=== PATIENT | male | born 1960 | race Caucasian/White ===

== ENCOUNTER 2024-02-12 16:20 | Emergency (ER) | payer OTHER, SELFPAY ==
[2024-02-12 16:27] VITALS: BP 142/87; PULSE 95; RESP 18; TEMP 36.6; O2SAT 97; BMI 42.4
--- NOTE | 2024-02-12 16:39 | DI.RAD.S_ITS ---
PROCEDURE: XR CHEST 1V INDICATIONS: chest pain TECHNIQUE: One view of the chest was acquired. COMPARISON: [facility], , CHEST 2VW, 06/02/2014, 14:02. FINDINGS: Surgical changes and devices: None. Lungs and pleura: Left basilar scars and atelectasis. Lungs are clear. No pleural effusions or pneumothorax. Mediastinum: Mediastinal contours appear normal. Heart size is normal. Bones and chest wall: No suspicious bony lesions. Overlying soft tissues appear unremarkable. IMPRESSION: No acute cardiopulmonary abnormality is seen. Dictated by: Kaley Birch M.D. on 02/12/2024 at 17:26 Approved by: Kaley Birch M.D. on 02/12/2024 at 17:27
[2024-02-12 16:58] LABS: Add Manual Diff / Slide Review NO; Basophils Absolute Auto 0 /uL (0-100); Basophils Percent Auto 0.4 % (0-2); Eosinophils Absolute Auto 100 /uL (0-450); Eosinophils Percent Auto 0.9 % (2-4); Hematocrit 43.6 % (41-53); Hemoglobin 15.4 g/dL (13.5-17.5); Lymphocytes Absolute Auto 1900 /uL (1100-4500); Lymphocytes Percent Auto 18.8 % (25-40); Mean Corpuscular HGB Conc 35.4 % (30-36); Mean Corpuscular Hemoglobin 31.6 PG (26-34); Mean Corpuscular Volume 89.3 fL (80-100); Monocytes Absolute Auto 600 /uL (0-900); Monocytes Percent Auto 5.7 % (3-14); Neutrophils Absolute Auto 7500 /uL (1500-7000); Neutrophils Percent Auto 74.2 % (50-75); Platelet Count 223 X10^3/uL (150-400); Red Blood Cell Count 4.88 X10^6/uL (4.5-5.9); Red Cell Distribution Width 13.7 % (11.6-14.8); White Blood Cell Count 10.1 X10^3/uL (4.5-11.0)
[2024-02-12 17:06] LABS: Prothrombin Time 11.6 SECONDS (9.4-12.5)
[2024-02-12 17:08] LABS: PTT Partial Thromboplastin Tim 31 SECONDS (25.1-36.5)
[2024-02-12 17:10] LABS: Alanine Aminotransferase 65 IU/L (<50); Albumin 4.6 g/dL (3.5-5.0); Albumin Globulin Ratio 1.4 (1.0-2.8); Alkaline Phosphatase 97 U/L (38-126); Aspartate Aminotransferase 55 IU/L (17-59); BUN Creatinine Ratio 16.9 (6-22); Bilirubin Total 1.5 mg/dL (0.2-1.3); Blood Urea Nitrogen 10 mg/dL (9-20); Calcium 9.6 mg/dL (8.4-10.2); Carbon Dioxide 27 mmol/L (22-32); Chloride 99 mmol/L (98-107); Creatine Kinase 38 U/L (55-170); Estimated Glomerular Filt Rate > 60 mL/min (>60); Globulin 3.3 g/dL (1.7-4.1); Glucose 296 mg/dL (80-110); HEMOLYSIS < 15 (0-50); Lipase 119 U/L (23-300); Magnesium 1.9 mg/dL (1.6-2.3); Potassium 4.1 mmol/L (3.4-5.1); Sodium 134 mmol/L (137-145); Total Protein 7.9 g/dL (6.3-8.2)
[2024-02-12 17:21] LABS: Troponin I < 0.012 ng/mL (0.01-0.034)
[2024-02-12 18:20] VITALS: PULSE 87; O2SAT 97
[2024-02-12 18:22] VITALS: BP 160/98; PULSE 80; RESP 14; O2SAT 98
--- NOTE | 2024-02-12 18:27 | ED.GENADULT ---
HPI - General Adult General Chief complaint: Diabetic Problem Stated complaint: high blood sugar Time Seen by Provider: 02/12/24 18:26 Source: patient Mode of arrival: Ambulatory History of Present Illness HPI narrative: 63-year-old male presents for elevated blood glucose readings at home. Patient states that he was previously diagnosed with prediabetes and has been in a diabetic support group, however [place] had not attended and [place]. He states that last week he saw his primary care doctor in his A1c was 10. He was started on 500 mg daily of metformin. Patient states that his sugars have been between 3-500 at home. He told friends and family members, who told him that he could fall into a coma because of his blood sugars and to come to the ED. Patient reports hx of rheumatoid disease and was previously on prednisone. Finished prednisone 1 week prior. Related Data Home Medications Medication Instructions Recorded Confirmed atorvastatin 20 mg tablet 20 mg PO DAILY 02/12/24 02/12/24 celecoxib 200 mg capsule 200 mg PO BID 02/12/24 02/12/24 folic acid 1 mg tablet 1 mg PO BID 02/12/24 02/12/24 metformin 500 mg tablet 500 mg PO ONCE 02/12/24 02/12/24 methotrexate 2.5 mg/mL oral 2.5 mg PO QWEEK 02/12/24 02/12/24 solution Previous Rx's Medication Instructions Recorded metformin 500 mg tablet 500 mg PO BID #60 tabs 02/12/24 Allergies Allergy/AdvReac Type Severity Reaction Status Date / Time No Known Drug Allergies Allergy Verified 02/12/24 15:52 Review of Systems Review of Systems Narrative: Negative except as noted above Patient History Medical History (Updated 02/12/24 @ 18:29 by Keily Verma MD) Polyarthritis Social History Smoking Status: Current every day smoker Smoking Status: Current every day smoker tobacco type: smokeless tobacco alcohol intake frequency: a few times a month Substance Use Type: marijuana Exam Initial Vital Signs Initial Vital Signs: Vital Signs Temperature 97.8 F 02/12/24 16:27 Pulse Rate 95 H 02/12/24 16:27 Respiratory Rate 18 02/12/24 16:27 Blood Pressure 142/87 H 02/12/24 16:27 Pulse Oximetry 97 02/12/24 16:27 Oxygen Delivery Method Room Air 02/12/24 16:27 Const: Awake, alert, no acute distress, nontoxic appearing Cardiac: regular rate, regular rhythm RESP: unlabored, clear bilaterally, no wheezing Skin: Warm, Dry, intact, no rashes Neuro: AO x3, CN II-XII grossly intact, moves all extremities Course Orders Ordered: ED Orders 02/12/24 16:39 XR chest 1V Stat EKG-12 Lead Stat 02/12/24 16:46 Complete Blood Count AUTO DIFF Stat Comprehensive Metabolic Panel Stat Lipase Stat Magnesium Stat PTT Partial Thromboplastin [place] Stat Prothrombin Time INR Stat Troponin & CK Cardiac Panel Stat Discontinued Medications Aspirin (Aspirin 81 Mg Chew Tab) 324 mg PO NOW ONE Stop: 02/12/24 16:40 Last Admin: 02/12/24 18:37 Dose: Not Given Documented By: JADA Sodium Chloride (Normal Saline 0.9%) 1,000 mls @ 1,000 mls/hr IV BOLUS ONE Stop: 02/12/24 19:26 Last Infusion: 02/12/24 19:29 Dose: Infused Documented By: Admin: 02/12/24 18:37 Dose: 1,000 mls/hr Documented By: MAR Vital Signs Vital signs: Vital Signs - 8 hr 02/12/24 18:20 02/12/24 18:22 02/12/24 18:22 Pulse Rate 87 80 Respiratory Rate 14 Blood Pressure 160/98 H Pulse Oximetry 97 98 02/12/24 18:30 02/12/24 18:30 02/12/24 19:00 Pulse Rate 85 Respiratory Rate 14 Blood Pressure 152/92 H 166/97 H Pulse Oximetry 94 02/12/24 19:00 Pulse Rate 75 Respiratory Rate 12 Blood Pressure Pulse Oximetry 98 Medical Decision Making Lab Data 02/12/24 16:46 02/12/24 16:46 Labs: Lab Results 02/12/24 Range/Units 16:46 WBC 10.1 (4.5-11.0) X10^3/uL RBC 4.88 (4.5-5.9) X10^6/uL Hgb 15.4 (13.5-17.5) g/dL Hct 43.6 (41-53) % MCV 89.3 (80-100) fL MCH 31.6 (26-34) PG MCHC 35.4 (30-36) % RDW 13.7 (11.6-14.8) % Plt Count 223 (150-400) X10^3/uL Neut % (Auto) 74.2 (50-75) % Lymph % (Auto) 18.8 L (25-40) % [place] % (Auto) 5.7 (3-14) % Eos % (Auto) 0.9 L (2-4) % Baso % (Auto) 0.4 (0-2) % Neut # (Auto) 7500 H (5367-0750) /uL Lymph # (Auto) 1900 (9242-6768) /uL [place] # (Auto) 600 (0-900) /uL Eos # (Auto) 100 (0-450) /uL Baso # (Auto) 0 (0-100) /uL PT 11.6 (9.4-12.5) SECONDS INR 1.0 (0.9-1.3) APTT 31 (25.1-36.5) SECONDS Sodium 134 L (137-145) mmol/L Potassium 4.1 (3.4-5.1) mmol/L Chloride 99 (98-107) mmol/L Carbon Dioxide 27 (22-32) mmol/L BUN 10 (9-20) mg/dL Creatinine 0.59 L (0.66-1.25) mg/dL Estimated GFR > 60 (>60) mL/min BUN/Creatinine Ratio 16.9 (6-22) Glucose 296 H (80-110) mg/dL Calcium 9.6 (8.4-10.2) mg/dL Magnesium 1.9 (1.6-2.3) mg/dL Total Bilirubin 1.5 H (0.2-1.3) mg/dL AST 55 (17-59) IU/L ALT 65 H (<50) IU/L Alkaline Phosphatase 97 (38-126) U/L Total Creatine Kinase 38 L (55-170) U/L Troponin I < 0.012 (0.01-0.034) ng/mL Total Protein 7.9 (6.3-8.2) g/dL Albumin 4.6 (3.5-5.0) g/dL Globulin 3.3 (1.7-4.1) g/dL Albumin/Globulin Ratio 1.4 (1.0-2.8) Lipase 119 (23-300) U/L Point of Care Testing Glucose POC 274 Point of care testing: Point of Care Testing Glucose POC 274 MDM Narrative Medical decision making narrative: Nontoxic patient with elevated blood glucoses at home. Patient states he feels tired, thirsty with somewhat blurred vision. Hgb A1c greater than 10 at his PCP office, which translates to average glucose >240 over the last 3 months. IV fluids ordered. Labs show normal kidney function, no evidence of DKA, no evidence of infection. Patient is on the lowest dose possible of metformin. Patient was counseled to start a food journal where he logs everything that he eats, and given instructions on how to gradually increase his metformin. He was strongly advised to follow up with primary care physician. Patient casually mentioned intermittent chest pains in triage, his EKG is normal sinus rhythm, troponin undetectable, chest x-ray unremarkable. Low suspicion for ACS at this time. Discharge Plan Departure Patient Disposition: Home Clinical Impression: Diabetes mellitus Qualifiers: Diabetes mellitus type: type 2 Diabetes mellitus senior living insulin use: without senior living use Diabetes mellitus complication status: without complication Qualified Code(s): E11.9 - Type 2 diabetes mellitus without complications Instructions: DI for Diabetes Type 2 Activity Restrictions/Additional Instructions: Increase your metformin to 500 mg twice daily. If you find that you do not have too many GI side effects such as upset stomach or diarrhea you may increase this to 1500 mg daily. The maximum dose of metformin is 2000 mg daily. Please make sure that you follow up closely with your primary care physician to monitor your sugars, kidney function, etc. Prescriptions: New metformin 500 mg tablet 500 mg PO BID Qty: 60 0RF No Action metformin 500 mg tablet 500 mg PO ONCE celecoxib 200 mg capsule 200 mg PO BID atorvastatin 20 mg tablet 20 mg PO DAILY methotrexate 2.5 mg/mL solution 2.5 mg PO QWEEK Patient Comments: 8 pills once a week folic acid 1 mg tablet 1 mg PO BID Referrals: Miscellaneous,Doctor, MD [Primary Care Provider] - Stand Alone Forms: Patient Portal/API
[2024-02-12 18:30] VITALS: BP 152/92; PULSE 85; RESP 14; O2SAT 94
[2024-02-12] MEDS: SODIUM CHLORIDE 0.9% 1,000 ML 1000 ML IV (18:37)
[2024-02-12 19:00] VITALS: BP 166/97; PULSE 75; RESP 12; O2SAT 98
== END 2024-02-12 19:31 | disposition home or self-care (01) ==
PROVIDERS: Emergency Medicine; Emergency Provider Emergency Medicine; Family Provider Family Medicine
DX: E11.9 Type 2 diabetes mellitus without complications (principal); R07.9 Chest pain, unspecified
CPT/HCPCS: 36415; 71045; 80053; 82550; 82962; 83690; 83735; 84484; 85025; 85610; 85730; 93005; 99284

== ENCOUNTER 2024-05-13 15:02 | Emergency (ER) | payer OTHER, SELFPAY ==
[2024-05-13 15:39] VITALS: BP 157/107; PULSE 113; RESP 16; TEMP 36.4; O2SAT 98; BMI 43.4
[2024-05-13 17:14] LABS: Add Manual Diff / Slide Review NO; Basophils Absolute Auto 100 /uL (0-100); Basophils Percent Auto 0.7 % (0-2); Eosinophils Absolute Auto 100 /uL (0-450); Eosinophils Percent Auto 1.2 % (2-4); Hematocrit 46.2 % (41-53); Lymphocytes Absolute Auto 1900 /uL (1100-4500); Lymphocytes Percent Auto 16.7 % (25-40); Mean Corpuscular HGB Conc 34.6 % (30-36); Mean Corpuscular Hemoglobin 33.1 PG (26-34); Mean Corpuscular Volume 95.9 fL (80-100); Monocytes Absolute Auto 1000 /uL (0-900); Monocytes Percent Auto 8.6 % (3-14); Neutrophils Absolute Auto 8200 /uL (1500-7000); Neutrophils Percent Auto 72.8 % (50-75); Platelet Count 201 X10^3/uL (150-400); Red Blood Cell Count 4.81 X10^6/uL (4.5-5.9); Red Cell Distribution Width 14.5 % (11.6-14.8); White Blood Cell Count 11.3 X10^3/uL (4.5-11.0)
[2024-05-13 17:22] LABS: Alanine Aminotransferase 48 IU/L (<50); Albumin 4.8 g/dL (3.5-5.0); Albumin Globulin Ratio 1.3 (1.0-2.8); Alkaline Phosphatase 73 U/L (38-126); Aspartate Aminotransferase 77 IU/L (17-59); BUN Creatinine Ratio 27.4 (6-22); Blood Urea Nitrogen 20 mg/dL (9-20); Calcium 8.7 mg/dL (8.4-10.2); Carbon Dioxide 24 mmol/L (22-32); Chloride 102 mmol/L (98-107); Estimated Glomerular Filt Rate > 60 mL/min (>60); Globulin 3.8 g/dL (1.7-4.1); Glucose 117 mg/dL (80-110); Lipase 112 U/L (23-300); Sodium 136 mmol/L (137-145); Total Protein 8.6 g/dL (6.3-8.2)
--- NOTE | 2024-05-13 17:35 | ED_ITS ---
HPI - Back Pain/Injury General Chief Complaint: Back Pain/Injury Stated Complaint: lower back pain on left side Time Seen by Provider: 05/13/24 17:33 Source: patient, RN notes reviewed and old records reviewed Mode of arrival: Ambulatory Limitations: no limitations History of Present Illness HPI Narrative: 63-year-old male with history of hypertension dyslipidemia, psoriatic arthritis who presents with complaint of left flank pain wrapping around towards the front. Patient states it started in the last several days. Had minor symptoms on and off in the past but it has become constant and persistent. Describes it as a 6/10 at all times waxing and intensity and then improving. Patient states no fevers but he is felt sweaty. He states he has had some nausea but no vomiting. States he has had some diarrhea but notes he recently stopped metformin and started Mounjaro. Which he also relates his nausea 2. Patient states he has not noticed any changes in urination such as dysuria, urgency or frequency. Has not appreciate any hematuria but notes his urine has been dark. He states he does not get very good look at it because he lives in a van and uses a composting toilet so it does not in any water. Patient does note he had kidney stone many years ago, he does not recall if it felt similar to today. He has dose of his Celebrex for pain. States he has had prior ankle surgery. No reported drug allergies. Daily tobacco use, occasional alcohol, occasional marijuana denies any other recreational or IV drugs. Home medications include atorvastatin, Celebrex, folic acid, Lasix, had BREAUX to 14 days, Levemir, patient recently stopped metformin. Methotrexate. Recently started Mounjaro and sildenafil PRN. Related Data Home Medications Medication Instructions Recorded Confirmed atorvastatin 20 mg tablet 20 mg PO DAILY 02/12/24 02/12/24 celecoxib 200 mg capsule 200 mg PO BID 02/12/24 02/12/24 folic acid 1 mg tablet 1 mg PO BID 02/12/24 02/12/24 metformin 500 mg tablet 500 mg PO ONCE 02/12/24 02/12/24 methotrexate 2.5 mg/mL oral 2.5 mg PO QWEEK 02/12/24 02/12/24 solution Previous Rx's Medication Instructions Recorded metformin 500 mg tablet 500 mg PO BID #60 tabs 02/12/24 hydrocodone 5 mg-acetaminophen 325 1 tab PO Q6H PRN pain #5 tabs 05/13/24 mg tablet tamsulosin 0.4 mg capsule (Flomax) 0.4 mg PO DAILY #7 caps 05/13/24 Allergies Allergy/AdvReac Type Severity Reaction Status Date / Time No Known Drug Allergies Allergy Verified 02/12/24 15:52 Review of Systems Review of Systems ROS Unobtainable: All systems reviewed & are unremarkable except as noted in HPI and below Patient History Medical History Polyarthritis Social History Smoking Status: Current every day smoker Smoking Status: Current every day smoker tobacco type: smokeless tobacco alcohol intake frequency: a few times a month Substance Use Type: marijuana Exam Narrative Exam Narrative: GENERAL: Alert and oriented x three, male in mild distress. HEENT: Head normocephalic, atraumatic, EOMI, pupils reactive, face symmetric, moist mucous membranes NECK: Supple, full range of motion CARDIOVASCULAR: Regular rate and rhythm without murmurs, rubs or gallops. RESPIRATORY: Breath sounds equal bilaterally, no wheezes rales or rhonchi. ABDOMEN: Soft, nontender. Normoactive bowel sounds all 4 quadrants. No guarding or rebound, rigidity, no mass : No CVA tenderness bilaterally. EXTREMITIES: Normal range of motion, no clubbing or edema. Neurovascularly intact NEUROLOGICAL: Cranial nerves II through XII grossly intact. Moving all extremities SKIN: Warm, dry, no petechiae, patient has several small pustules over follicles on various locations on his back but these are quite sporadic throughout the back and not localized in the left lower quadrant or anterior abdomen. Initial Vital Signs Initial Vital Signs: Vital Signs Temperature 97.6 F 05/13/24 15:39 Pulse Rate 113 H 05/13/24 15:39 Respiratory Rate 16 05/13/24 15:39 Blood Pressure 157/107 H 05/13/24 15:39 Pulse Oximetry 98 05/13/24 15:39 Oxygen Delivery Method Room Air 05/13/24 15:39 Course Orders Ordered: Discontinued Medications Ondansetron HCl (Ondansetron 4 Mg/2 Ml Inj) 4 mg IV NOW PRN PRN Reason: Nausea And Vomiting Ondansetron HCl (Ondansetron 4 Mg Odt) 4 mg PO NOW PRN PRN Reason: Nausea And Vomiting Vital Signs Vital signs: Vital Signs - 8 hr 05/13/24 15:39 05/13/24 18:10 Temperature 97.6 F 98.7 F Pulse Rate 113 H 98 H Respiratory Rate 16 19 Blood Pressure 157/107 H 147/101 H Pulse Oximetry 98 98 Oxygen Delivery Method Room Air Room Air MDM - Back Pain/Injury Lab Data 05/13/24 17:01 05/13/24 17:01 Labs: Lab Results 05/13/24 05/13/24 Range/Units 17:01 17:05 WBC 11.3 H (4.5-11.0) X10^3/uL RBC 4.81 (4.5-5.9) X10^6/uL Hgb 16.0 (13.5-17.5) g/dL Hct 46.2 (41-53) % MCV 95.9 (80-100) fL MCH 33.1 (26-34) PG MCHC 34.6 (30-36) % RDW 14.5 (11.6-14.8) % Plt Count 201 (150-400) X10^3/uL Neut % (Auto) 72.8 (50-75) % Lymph % (Auto) 16.7 L (25-40) % [place] % (Auto) 8.6 (3-14) % Eos % (Auto) 1.2 L (2-4) % Baso % (Auto) 0.7 (0-2) % Neut # (Auto) 8200 H (7864-3574) /uL Lymph # (Auto) 1900 (2640-9554) /uL [place] # (Auto) 1000 H (0-900) /uL Eos # (Auto) 100 (0-450) /uL Baso # (Auto) 100 (0-100) /uL Sodium 136 L (137-145) mmol/L Potassium 4.4 (3.4-5.1) mmol/L Chloride 102 (98-107) mmol/L Carbon Dioxide 24 (22-32) mmol/L BUN 20 (9-20) mg/dL Creatinine 0.73 (0.66-1.25) mg/dL Estimated GFR > 60 (>60) mL/min BUN/Creatinine Ratio 27.4 H (6-22) Glucose 117 H (80-110) mg/dL Calcium 8.7 (8.4-10.2) mg/dL Total Bilirubin 2.0 H (0.2-1.3) mg/dL AST 77 H (17-59) IU/L ALT 48 (<50) IU/L Alkaline Phosphatase 73 (38-126) U/L Total Protein 8.6 H (6.3-8.2) g/dL Albumin 4.8 (3.5-5.0) g/dL Globulin 3.8 (1.7-4.1) g/dL Albumin/Globulin Ratio 1.3 (1.0-2.8) Lipase 112 (23-300) U/L Ur Bilirubin Confirm Positive H (Negative) Urine RBC None seen (0-5/HPF) Urine WBC None seen (0-5/HPF) Ur Squamous Epith Cells None seen (0-5/HPF) Urine Bacteria Occasional (0-1) (None) Urine Mucus 1+ H (Negative) Ur Culture Indicated? Specimen cultured Vol Urine Centrifuged 10ml (spun) Urine Dip Bedside Urine Glucose Negative Bedside Urine Bilirubin + 1 Bedside Urine Ketone +/- 5 Urine Specific [place] 1.025 Bedside Urine Occult Blood - Negative Bedside Urine pH 6.0 Bedside Urine Protein + 30 Bedside Urine Urobilinogen - Negative Bedside Urine Nitrite - Negative Bedside Urine Leukocytes +/- 15 Esterase MDM Narrative Medical decision making narrative: 63-year-old male with left flank pain wrapping around to the left anterior abdomen. On exam patient does not have any reproducible pain. Does have a remote history kidney stone does not recall if this feels similar. White count 11.3 normal hemoglobin and platelets. Electrolytes shows sodium 136 normal electrolytes otherwise creatinine 0.73 glucose of 117, bilirubin is 2 but was elevated in January of 2024 at 1.5 with an AST of 77 ALT of 48 and a lipase of 112. Patient's symptoms are all localized to the left flank and left lower quadrant. Point of care urine is positive for protein positive for leukocyte esterase. Urine microscopy positive for bilirubin, 1+ mucus, 1 bacteria no red cells no white cells no squamous. Was sent for culture. Discussed with patient would like to obtain CT scan he would very much like to not have this done based on his insurance situation. Patient is overall well- appearing states his pain is well-controlled he defers anything for pain currently. Renal function is normal, LFTs are elevated but this appears to be chronic least in the last several months in his the opposite side of his symptoms. Discussed with patient he would prefer not to continue with imaging. [place] appropriate he has mild pain that is well-controlled normal renal function urine does not show clear signs of infection or blood. Discussed possible kidney stone can sometimes occur without blood in his urine. We will give a script for Flomax and oral pain medication. Discussed with patient return precautions should follow up if pain is persisting for more than several days. And discussed need for follow-up. Discharge Plan Departure Patient Disposition: Home Clinical Impression: Left flank pain Instructions: DI for Flank Pain Activity Restrictions/Additional Instructions: Follow up if your symptoms do not resolve in the next 1-2 days for recheck. Your renal function is normal, your urine does not show any blood but is possible to have kidney stones without blood in urine. Because we have not done imaging today we have a presumptive diagnosis kidney stone, you can take Flomax once daily until gone. Can take pain medications as prescribed, 1-2 tablets every 6 hours as needed. This medication can make you sleepy do not drive, perform hazardous activities or make any major decisions while taking it. This medication will make you constipated please take a stool softener once to twice daily until stools are soft and regular. Prescription sent to [facility] in [place] Please return or go to the closest emergency department if you are having fevers, worsening abdominal back or flank pain, any passing out, persistent vomiting, black or bloody stools, difficulty with urination or other new or concerning changes. Prescriptions: New tamsulosin [Flomax] 0.4 mg capsule 0.4 mg PO DAILY Qty: 7 0RF hydrocodone-acetaminophen 5-325 mg tablet 1 tab PO Q6H PRN (Reason: pain) Qty: 5 0RF No Action metformin 500 mg tablet 500 mg PO ONCE celecoxib 200 mg capsule 200 mg PO BID atorvastatin 20 mg tablet 20 mg PO DAILY methotrexate 2.5 mg/mL solution 2.5 mg PO QWEEK Patient Comments: 8 pills once a week folic acid 1 mg tablet 1 mg PO BID metformin 500 mg tablet 500 mg PO BID Qty: 60 0RF Referrals: Miscellaneous,Doctor, MD [Primary Care Provider] - Stand Alone Forms: Patient Portal/API
[2024-05-13 17:38] LABS: HEMOLYSIS 127 (0-50); Potassium 4.4 mmol/L (3.4-5.1)
[2024-05-13 17:42] LABS: Ictotest Urine Positive (Negative)
[2024-05-13 18:03] LABS: Bacteria Urine Occasional (0-1); Culture Indicated Urine Specimen Cultured; RBC Urine None Seen (0-5/HPF); Squamous Epithelial Cell Urine None Seen (0-5/HPF); Urine Volume 10mL (spun); WBC Urine None Seen (0-5/HPF)
[2024-05-13 18:04] LABS: Mucus Urine 1+ (Negative)
[2024-05-13 18:10] VITALS: BP 147/101; PULSE 98; RESP 19; TEMP 37.1; O2SAT 98
--- NOTE | 2024-05-13 18:12 | PC.NURSE ---
Lower left back pain worsening over weekend; pt states the last time he had this pain his labs were out of wack. Pt states he started two new meds recently. Pt states he has been urinating w/o issue.
== END 2024-05-13 19:01 | disposition home or self-care (01) ==
PROVIDERS: Emergency Provider Emergency Medicine; Family Provider Family Medicine
DX: R10.9 Unspecified abdominal pain (principal)
CPT/HCPCS: 80053; 81003; 81015; 83690; 85025; 87086; 99282